=== PATIENT | male | born 1965 | race Caucasian/White ===

== ENCOUNTER 2016-11-21 16:34 | Emergency (ER) | payer OTHER ==
[~2016-11-21] VITALS: Ht 180.3 cm; Wt 122.5 kg
--- NOTE | 2016-11-21 16:54 | ED MVC/FALL/TRAUMA COMPLAINT ---
History of Present Illness General Chief Complaint: Shoulder Injury Stated Complaint: RT ARM/SHOULDER PAIN S/P FALL AT WORK Source: patient Exam Limitations: no limitations Vital Signs & Intake/Output Vital Signs & Intake/Output Vital Signs Date Time Temp Pulse Resp B/P B/P Pulse O2 O2 Flow FiO2 Mean Ox Delivery Rate 11/21 1637 97.2 80 20 160/90 98 Room Air Allergies Coded Allergies: NO KNOWN ALLERGIES (02/19/16) Reconcile Medications Hydrocodone/Acetaminophen (Vicodin 5-300 MG Tablet) 5 MG-300 MG TABLET 1 TAB PO Q6 PRN pain Meloxicam (Mobic) 15 MG TABLET 1 TAB PO DAILY PRN PAIN/INFLAMMATION Triage Note: PT TO ED C/O RIGHT ARM/SHOULDER PAIN S/P FALL AT WORK. PT STEPPED IN MUD AND FELL OPEN HANDED ON RIGHT ARM. DENIES HEAD STRIKE. WORKERS COMP FORM FILED IN TRIAGE. DECLINING MEDS IN TRIAGE. Triage Nurses Notes Reviewed? yes HPI: Patient is a 51 year old male presents complaining of right upper extremity pain s/p fall. Patient was working, slipped on mud and fell onto his right shoulder. Pain is 3-4/10 at rest, 10/10 with range of motion. Injury occurred at 1455 today. Patient is ambidextrous. Denies head injury, numbness. (JAMES BERRY) Past History Travel History Traveled to [place] past 21 day No Medical History Any Pertinent Medical History? see below for history Musculoskeletal: left rotator cuff injury Endocrine: PRE-DIABETES Surgical History Surgical History: non-contributory Psychosocial History What is your primary language Martiniquais Tobacco Use: Quit >30 days ago ETOH Use: denies use Illicit Drug Use: denies illicit drug use Family History Hx Contributory? No (JAMES BERRY) Review of Systems Review of Systems Constitutional: Reports: no symptoms. Eyes: Reports: no symptoms. Respiratory: Denies: short of breath. Cardiovascular: Denies: chest pain, syncope. Gastrointestinal/Abdominal: Denies: abdominal pain, vomiting. Genitourinary: Reports: no symptoms. Musculoskeletal: Reports: see HPI. Skin: Reports: no symptoms. Neurological/Psychological: Denies: headache, numbness. (JAMES BERRY) Physical Exam Physical Exam General Appearance: well developed/nourished, alert, awake Head: atraumatic, normal appearance Eyes: Bilateral: normal appearance. Ears, Nose, Throat, Mouth: hearing grossly normal, moist mucous membrane Neck: normal inspection, supple, full range of motion, no midline tenderness Respiratory: no respiratory distress Peripheral Pulses: 2+ radial (R) Back: normal inspection, normal range of motion, no vertebral tenderness Extremities: tenderness right AC joint. Severe pain with any active flexion and abduction of the right shoulder. Mild tenderness right elbow, mild tenderness right wrist. Neurologic/Psych: awake, alert, oriented x 3, normal gait, normal mood/affect Skin: intact, normal color, warm/dry Core Measures ACS in differential dx? No Severe Sepsis Present: No Septic Shock Present: No (TED BOSS,JAMES) Progress Differential Diagnosis: aoritic dissection, abd injury, C/T/L spine injury, ext injury, ICH, pelvis injury, pnemothorax, spinal cord injury Plan of Care: Orders Procedure Date/time Status Durable Medical Equipment 11/21 183 Active Patient declined pain medication on initial exam. Results of x-rays discussed with the patient. Shoulder sling placed by nurse. Patient to follow-up with orthopedics for further evaluation. (TED BOSS,JAMES) Diagnostic Imaging: Viewed by Me: Radiology Read. Discussed w/RAD: Radiology Read. Radiology Impression: PATIENT: DIONTE KOHLER PRESENT AGE: 51 PATIENT ACCOUNT NO: [id number] : 64 LOCATION: [facility] ORDERING PHYSICIAN: JAMES BOSS SERVICE DATE: 11/21/16 EXAM TYPE: RAD - XRY-ELBOW 3 OR MORE VIEWS, R; XRY-SHOULDER COMPLETE-RIGHT; XRY-WRIST COMPLETE- RIGHT EXAMINATION: XR SHOULDER, RIGHT XR ELBOW, RIGHT XR WRIST, RIGHT CLINICAL INFORMATION: History of fall with right shoulder pain and tenderness. Also, elbow and wrist pain. Evaluate for fracture. COMPARISON: None TECHNIQUE: AP external rotation, Grashey, scapular Y, and axillary views of the right shoulder were obtained. 4 views of the right elbow were obtained 3 views of the right wrist were obtained. FINDINGS: Shoulder: Bones have normal alignment at the acromioclavicular and glenohumeral joints. There is minimal osteoarthrosis of the acromioclavicular joint. The humeral head is well-positioned over the intact glenoid. No fracture, subluxation or focal soft tissue swelling. Right elbow: The elbow joint spaces are well-preserved. No acute fracture, subluxation or elbow joint effusion. There is enthesophyte formation at the sublime tubercle of the ulna. Right wrist: The distal radius, ulna and radioulnar joint are intact. At the triscaphe and first carpometacarpal joints, there is joint space narrowing, subarticular sclerosis and osteophyte formation. No evidence of carpal bone fracture. IMPRESSION: 1. No acute fracture or malalignment in the right shoulder, elbow or wrist. 2. 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 DICTATED BY: SARITA CHAWLA MD DATE/TIME DICTATED:11/21/161753 TECHNICAL OPERATIONS SPECIALIST:CURT DATE/TIME TRANSCRIBED:11/21/161753 CONFIDENTIAL, DO NOT COPY WITHOUT APPROPRIATE AUTHORIZATION. <Electronically signed in Other Vendor System> SIGNED BY: SARITA CHAWLA MD 11/21/161801 (JAMES BERRY) Departure Departure Disposition: HOME OR SELF CARE Condition: Stable Clinical Impression Primary Impression: Sprain of shoulder, right Qualifiers: Encounter type: initial encounter Shoulder sprain type: unspecified sprain Qualified Code: S43.401A - Unspecified sprain of right shoulder joint, initial encounter Secondary Impressions: Right wrist sprain Referrals: ALVARO MONZON,DIONTE Garcia (PCP/Family) KYE MONZON,REBEKAH James Additional Instructions: Follow up with Dr. Kinsey for further evaluation. Call Wednesday for appointment. Rest, ice for 20 minutes every 1-2 hours, wear sling for support. Return to the ER if worsening of symptoms. Departure Forms: Customer Survey Employee Industrial Accident General Discharge Information Prescriptions: Current Visit Scripts Meloxicam (Mobic) 1 TAB PO DAILY PRN PAIN/INFLAMMATION #10 TAB Hydrocodone/Acetaminophen (Vicodin 5-300 MG Tablet) 1 TAB PO Q6 PRN pain #10 TAB (JAMES BERRY) PA/[employer] Co-Sign Statement Statement: ED Attending supervision documentation- [X] I saw and evaluated the patient. I have also reviewed all the pertinent lab results and diagnostic results. I agree with the findings and the plan of care as documented in the PA's/[employer]'s documentation. [X] I have reviewed the ED Record and agree with the PA's/[employer]'s documentation. [] Additions or exceptions (if any) to the PAs/[employer]'s note and plan are summarized below: [] (NENA MONZON,CATRINA Baker)
--- NOTE | 2016-11-21 18:02 | RADIOLOGY REPORT ---
EXAMINATION: XR SHOULDER, RIGHT XR ELBOW, RIGHT XR WRIST, RIGHT CLINICAL INFORMATION: History of fall with right shoulder pain and tenderness. Also, elbow and wrist pain. Evaluate for fracture. COMPARISON: None TECHNIQUE: AP external rotation, Grashey, scapular Y, and axillary views of the right shoulder were obtained. 4 views of the right elbow were obtained 3 views of the right wrist were obtained. FINDINGS: Shoulder: Bones have normal alignment at the acromioclavicular and glenohumeral joints. There is minimal osteoarthrosis of the acromioclavicular joint. The humeral head is well-positioned over the intact glenoid. No fracture, subluxation or focal soft tissue swelling. Right elbow: The elbow joint spaces are well-preserved. No acute fracture, subluxation or elbow joint effusion. There is enthesophyte formation at the sublime tubercle of the ulna. Right wrist: The distal radius, ulna and radioulnar joint are intact. At the triscaphe and first carpometacarpal joints, there is joint space narrowing, subarticular sclerosis and osteophyte formation. No evidence of carpal bone fracture. IMPRESSION: 1. No acute fracture or malalignment in the right shoulder, elbow or wrist. 2. At the wrist, there is [id number] osteoarthritis of the triscaphe and first carpometacarpal joints.
[2016-11-21] MEDS ORDERED: VICODIN 5-3001 EACH PO (18:33)
[2016-11-21] MEDS ORDERED: MOBIC15 M1 PO (18:33)
[2016-11-21 19:02] VITALS: BP 147/88
== END 2016-11-21 19:03 ==
LOC: ERH 16:34
DX: S43.401A Unspecified sprain of right shoulder joint, initial encounter (principal); S63.501A Unspecified sprain of right wrist, initial encounter; W01.0XXA Fall on same level from slipping, tripping and stumbling without subsequent striking against object, initial encounter; Y92.9 Unspecified place or not applicable; Y93.9 Activity, unspecified
CPT/HCPCS: 73030-RT; 73080-RT; 73110-RT